=== PATIENT | male | born 2000 | race Caucasian/White ===

== ENCOUNTER 2022-06-10 19:32 | Emergency (ER) | payer OTHER ==
[2022-06-10 19:37] VITALS: BP 152/99; PULSE 113
[2022-06-10] MEDS ORDERED: Sodium Chloride 0.9% 1,000 ML IV STA (19:45)
[2022-06-10 20:15] LABS: AMPHETAMINES,URINE NEGATIVE (NEGATIVE); BARBITURATES,URINE NEGATIVE (NEGATIVE); BENZODIAZEPINE,URINE NEGATIVE (NEGATIVE); MDMA (ECSTASY), URINE NEGATIVE (NEGATIVE); METHADONE,URINE NEGATIVE (NEGATIVE); METHAMPHETAMINES,URINE NEGATIVE (NEGATIVE); OPIATES,URINE NEGATIVE (NEGATIVE); OXYCODONE,URINE NEGATIVE (NEGATIVE); PHENCYCLIDINE,URINE NEGATIVE (NEGATIVE); TCA,URINE NEGATIVE (NEGATIVE)
[2022-06-10 20:22] LABS: CHLORIDE,CL 100 mEq/L (98-106); SODIUM,NA 138 mEq/L (136-145)
[2022-06-10 20:23] LABS: ESTIMATED GFR 109 mL/min (>=60)
== END 2022-06-10 21:36 | disposition home or self-care (01) ==
LOC: CC.ED 19:32
DX: R56.9 Unspecified convulsions (principal)
CPT/HCPCS: 36415; 70450; 80053; 80305-QW; 80307; 81001; 82550; 83735; 84146; 85025; 96360; 99284; 99285-25; J7030